=== PATIENT | male | born 1980 | race Caucasian/White ===

== ENCOUNTER 2017-01-02 09:44 | Emergency (ER) | payer OTHER | END 2017-01-02 11:15 | disposition home or self-care (01) | LOC: FER 09:44 | DX: S30.0XXA Contusion of lower back and pelvis, initial encounter (principal); R07.1 Chest pain on breathing; R06.02 Shortness of breath; W00.0XXA Fall on same level due to ice and snow, initial encounter; Y92.69 Other specified industrial and construction area as the place of occurrence of the external cause; Y99.0 Civilian activity done for income or pay | CPT/HCPCS: 71020; 72131; J1885 ==